=== PATIENT | female | born 1965 | race Caucasian/White ===

== ENCOUNTER 2017-09-17 07:14 | Emergency (ER) | payer BC ==
[2017-09-17 07:41] VITALS: BP 133/79
--- NOTE | 2017-09-17 08:29 | UC ---
Ear Complaint HPI - HPI Summary HPI Summary: 51 year old female with ear pain . Left ear pain that started 4 days ago. Has been swimming recently. Pain now going down left side of throat and up to left eye. Denies fever at home. Has had this previously and treated with antibiotics. Also was using a q tip again and aware not to use those. No hearing loss. No fever. nNo vertigo. no other concerns. No sinus pressure. Had pain in left ear 4/10 last night. [ End ] - History of Current Complaint Chief Complaint: UCEar Stated Complaint: LT EAR PAIN Time Seen by Provider: 09/17/17 08:27 Hx Obtained From: Patient Hx Last Menstrual Period: unknown ?: No Onset/Duration: Sudden Onset Severity Initially: Mild Severity Currently: Mild Pain Intensity: 3 Pain Scale Used: 0-10 Numeric - 3 or 4 - Allergies/Home Medications Allergies/Adverse Reactions: Allergies Allergy/AdvReac Type Severity Reaction Status Date / Time No Known Allergies Allergy Verified 09/17/17 07:41 Home Medications: Home Medications Anastrozole (NF) [Arimidex (NF)] 1 mg PO DAILY 09/17/17 [History Confirmed 09/17] PMH/Surg Hx/FS Hx/Imm Hx Previously Healthy: Yes Cancer History: Other - breast cancer Other Cancer History: breast - Surgical History Surgical History: Yes Surgery Procedure, Year, and Place: HYSTERECTOMY. ABD LAP SX. CHOLECYSTECTOMY. R BREAST LUMPECTOMY - Family History Known Family History: Positive: Cardiac Disease, Hypertension - Social History Occupation: Employed Full-time - Health department Alcohol Use: None Substance Use Type: None Smoking Status (MU): Never Smoked Tobacco Review of Systems ENT: Sore Throat, Ear Ache Is Patient Immunocompromised?: No All Other Systems Reviewed And Are Negative: Yes Physical Exam Triage Information Reviewed: Yes Appearance: Well-Appearing, No Pain Distress, Well-Nourished Vital Signs: Initial Vital Signs Temp 97.5 F 09/17/17 07:34 Pulse 70 09/17/17 07:34 Resp 17 09/17/17 07:34 BP 133/79 09/17/17 07:34 Pulse Ox 97 09/17/17 07:34 Vital Signs Reviewed: Yes Eye Exam: Normal ENT Exam: Normal ENT: Positive: TMs normal, TM dull, Other - left pinna tenderness with palpation and manipulation. ear canal with mild erythema / swelling . TM otherwise normal . no discharge.. Negative: TM bulging, TM red Dental Exam: Normal Neck exam: Normal Neck: Positive: 1 Respiratory Exam: Normal Cardiovascular Exam: Normal Musculoskeletal Exam: Normal Neurological Exam: Normal Psychological Exam: Normal Skin Exam: Normal Ear Complaint Course/Dx - Differential Dx/Diagnosis Differential Diagnosis/HQI/PQRI: Otitis Externa, Otitis Media, Perforated TM Provider Diagnoses: Otitis externa left ear Discharge - Sign-Out/Discharge Documenting (check all that apply): Patient Departure - Discharge Plan Condition: Good Disposition: HOME Prescriptions: Neomyc/Polym/HC 1% OTIC SUSP* [Cortisporin Otic Susp 1%*] 4 drop LEFT EAR TID 5 Days #1 btl Patient Education Materials: Otitis Externa (ED) Referrals: Nathalie Rincon MD [Primary Care Provider] - 4 Days (If needed ) - Billing Disposition and Condition Condition: GOOD Disposition: Home
== END 2017-09-17 08:55 | disposition home or self-care (01) ==
LOC: UCCORT 07:14
DX: H60.92 Unspecified otitis externa, left ear (principal)
CPT/HCPCS: 99212; G0463

== ENCOUNTER 2018-10-03 16:25 | Emergency (ER) | payer BC ==
[2018-10-03 16:47] VITALS: BP 130/67
--- NOTE | 2018-10-03 17:09 | UC ---
Abdominal Pain Female HPI - HPI Summary HPI Summary: 52-year-old woman comes in with a chief complaint of diarrhea and abdominal bloating. Started 5 days ago. Patient is suspicious it started after she cleaned her dog covered in feces. She initially had sulfur smelling burps. She has diffuse abdominal bloating no focal area of pain no fevers no chills. Diarrhea is watery she has not seen any blood in it. Occasionally she is nauseous but no vomiting. She has been able to drink and eat although that does upset her abdomen. 2 weeks ago she did have a colonoscopy and had 2 polyps removed. She tells me the polyps were not cancerous. After the colonoscopy and prior to the beginning of the diarrhea the patient felt well. Patient does feel fatigued in her mouth feels dry. She does not feel lightheaded. - History of Current Complaint Chief Complaint: UCGI Stated Complaint: GI ISSUE Time Seen by Provider: 10/03/18 16:51 Hx Last Menstrual Period: unknown Pain Intensity: 0 Allergies/Adverse Reactions: Allergies Allergy/AdvReac Type Severity Reaction Status Date / Time No Known Allergies Allergy Verified 10/03/18 16:48 PMH/Surg Hx/FS Hx/Imm Hx Previously Healthy: Yes - Surgical History Surgical History: Yes Surgery Procedure, Year, and Place: HYSTERECTOMY. ABD LAP SX. CHOLECYSTECTOMY. R BREAST LUMPECTOMY - Family History Known Family History: Positive: Cardiac Disease, Hypertension - Social History Alcohol Use: None Substance Use Type: None Smoking Status (MU): Never Smoked Tobacco Review of Systems All Other Systems Reviewed And Are Negative: Yes Constitutional: Positive: Fatigue, Other - SEE HPI Skin: Positive: Negative Eyes: Positive: Negative ENT: Positive: Other - SEE HPI Respiratory: Positive: Negative Cardiovascular: Positive: Negative Gastrointestinal: Positive: Abdominal Pain, Diarrhea, Nausea Genitourinary: Positive: Negative Motor: Positive: Negative Neurovascular: Positive: Negative Musculoskeletal: Positive: Negative Neurological: Positive: Negative Psychological: Positive: Negative Is Patient Immunocompromised?: No Physical Exam Triage Information Reviewed: Yes Appearance: Well-Appearing, No Pain Distress, Well-Nourished Vital Signs: Initial Vital Signs Temp 98.2 F 10/03/18 16:41 Pulse 82 10/03/18 16:41 Resp 18 10/03/18 16:41 BP 130/67 10/03/18 16:41 Pulse Ox 99 10/03/18 16:41 Vital Signs Reviewed: Yes Eye Exam: Normal Eyes: Positive: Conjunctiva Clear ENT: Positive: Pharynx normal Neck: Positive: Supple, Nontender Respiratory: Positive: Lungs clear, Normal breath sounds, No respiratory distress Cardiovascular: Positive: RRR Abdomen Description: Positive: Soft, Other: - Abdomen is soft and nontender to palpation. There is no focal area of tenderness. Bowel Sounds: Positive: Present Musculoskeletal: Positive: Strength Intact, ROM Intact Neurological Exam: Normal Neurological: Positive: Alert, Muscle Tone Normal Psychological: Positive: Age Appropriate Behavior Skin Exam: Normal Abd Pain Female Course/Dx - Course Course Of Treatment: Patient has no focal area of pain or fever at this time. She did not see any blood in the stool. We discussed IV fluids. At this time the patient declined IV fluids. I also discussed that if anything got worse with focal area of pain or fevers or blood in the stool or dehydration or any other concerns she needed further evaluation and care the emergency department. - Differential Dx/Diagnosis Provider Diagnosis: Diarrhea, Abdominal pain Discharge - Sign-Out/Discharge Documenting (check all that apply): Patient Departure All imaging exams completed and their final reports reviewed: No Studies - Discharge Plan Condition: Stable Disposition: HOME Patient Education Materials: Acute Diarrhea (ED), Abdominal Pain (ED) Referrals: Benjamin WHITAKER,Mason Gross [Primary Care Provider] - Additional Instructions: FOLLOW UP WITH YOUR DOCTOR IF NOT COMPLETELY IMPROVED. GO TO THE EMERGENCY DEPARTMENT IF WORSE; PAIN, FEVER, BLOOD IN YOUR STOOL, DEHYDRATION, YOU FEEL LIKE PASSING OUT OR ANY QUESTIONS OR CONCERNS. - Billing Disposition and Condition Condition: STABLE Disposition: Home
--- NOTE | 2018-10-06 06:57 | UC ---
- Progress Note Progress Note: notify patient stool + for occult blood follow up as planned Course/Dx - Diagnoses Provider Diagnoses: Diarrhea, Abdominal pain Discharge ED - Sign-Out/Discharge Documenting (check all that apply): Post-Discharge Follow Up All imaging exams completed and their final reports reviewed: No Studies - Discharge Plan Condition: Stable Disposition: HOME Patient Education Materials: Acute Diarrhea (ED), Abdominal Pain (ED) Referrals: Benjamin WHITAKER,Mason Gross [Primary Care Provider] - Additional Instructions: FOLLOW UP WITH YOUR DOCTOR IF NOT COMPLETELY IMPROVED. GO TO THE EMERGENCY DEPARTMENT IF WORSE; PAIN, FEVER, BLOOD IN YOUR STOOL, DEHYDRATION, YOU FEEL LIKE PASSING OUT OR ANY QUESTIONS OR CONCERNS. - Billing Disposition and Condition Condition: STABLE Disposition: Home
== END 2018-10-03 17:27 | disposition home or self-care (01) ==
LOC: UCCORT 16:25
DX: R19.7 Diarrhea, unspecified (principal); R10.9 Unspecified abdominal pain
CPT/HCPCS: 99211; G0463